=== PATIENT | male | born 1935 | race African-American/Black ===

== ENCOUNTER 2017-05-01 09:37 | Inpatient (IN) | payer OTHER ==
[~2017-05-01] VITALS: Ht 172.7 cm; Wt 72.6 kg
[~2017-05-01 09:37] MED LIST: AMLO5TAB2 PO; CLON0.1T PO; MECL-87 PO; METF-370 PO; SIMV-8 PO; THEO1TAB3 PO
[2017-05-01] MEDS ORDERED: SODIUM CHLORIDE 0.9% 1,000 ML IV ONE (10:04)
[2017-05-01 10:11] LABS: Basophils # (auto) 0 uL; Basophils % (auto) 0.3 % (0.0-2.0); Eosinophils # (auto) 0.3 uL; Monocytes # (auto) 0.8 uL; Neutrophils # (auto) 5.2 uL; Nucleated Red Blood Cells % 0.3 %; Red Blood Cells 5.66 10^6/uL (4.5-5.90); White Blood Cell 8.8 10^3/uL (4.4-10.8)
[2017-05-01 10:13] LABS: Eosinophils % (auto) 3.3 % (0.0-7.0); Hemoglobin 14.6 g/dL (13.5-17.5); Lymphocytes # (auto) 2.6 uL; Lymphocytes % (auto) 29.1 % (10.0-50.0); Mean Corpuscular Hemoglobin 25.8 pg (28.0-32.0); Mean Corpuscular Hgb Conc. 32.5 g/dL (32.0-36.0); Mean Corpuscular Volume 79.4 fL (80.0-100.0); Monocytes % (auto) 8.8 % (0.0-12.0); Neutrophils % (auto) 58.5 % (37.0-80.0); Platelet Count (auto) 287 10^3/uL (140-450); Red Cell Distribution Width 14.2 % (11.8-14.3)
[2017-05-01] MEDS ORDERED: MECLIZINE HCL 25 MG TAB PO ONE (10:15)
[2017-05-01] MEDS ORDERED: METOPROLOL TARTRATE 1MG/1ML-5ML VIAL IV ONE (10:30)
[2017-05-01] MEDS ORDERED: ASPirin 81 mg TAB PO ONE (10:30)
[2017-05-01 10:39] LABS: Alanine Aminotransferase 14 U/L (16-61); Albumin 3.8 g/dL (3.4-5.0); Alkaline Phosphatase 1268 U/L (45-117); Anion Gap 14 (5-15); Aspartate Aminotransferase 29 U/L (15-37); BUN/Creatinine Ratio 9.7; Bilirubin, Total 0.6 mg/dL (0.2-1.0); Blood Urea Nitrogen 10 mg/dL (7-18); Calcium 9.3 mg/dL (8.5-10.1); Carbon Dioxide 21 mmol/L (21-32); Chloride 102 mmol/L (98-107); GFR African American 89 mL/min; GFR Non-African American 74 mL/min; Glucose 110 mg/dL (74-106); Magnesium 2.2 mg/dL (1.6-2.6); Potassium 3.7 mmol/L (3.5-5.1); Sodium 137 mmol/L (136-145); Total Protein 9.2 g/dL (6.4-8.2)
[2017-05-01] MEDS ORDERED: MECLIZINE HCL 25 MG TAB PO PRN (11:45)
[2017-05-01] MEDS ORDERED: SOTALOL HCL 80 MG TAB PO ONE (11:45)
[2017-05-01] MEDS ORDERED: cloNIDine HCL 0.1 MG TAB PO PRN (11:45)
[2017-05-01] MEDS ORDERED: NITROGLYCERIN 0.4 MG SL TAB SL PRN (12:00)
[2017-05-01] MEDS ORDERED: TEMAZEPAM 15 MG CAP PO PRN (12:00)
[2017-05-01] MEDS: THEOPHYLLINE 80 MG/15ml ORAL Elixir PO SCH ×3 (12:00→22:00)
[2017-05-01] MEDS ORDERED: DOCUSATE SOD 100 MG CAP PO PRN (12:00)
[2017-05-01] MEDS ORDERED: ONDANSETRON HCL 4 MG/2 ML VIAL IV PRN (12:00)
[2017-05-01] MEDS ORDERED: HYDROcodone-ACET 5/325MG TAB PO PRN (12:00)
[2017-05-01] MEDS ORDERED: DEXTROSE (50%) 50ML SYRG IV PRN (12:00)
[2017-05-01] MEDS ORDERED: ACETAMINOPHEN 325 MG TAB PO PRN (12:00)
[2017-05-01] MEDS ORDERED: MORPHINE SULFATE 4 MG/ML SYR/VIAL IV PRN ×2 (12:00)
[2017-05-01 13:14] LABS: Urine Bacteria NONE SEEN /hpf (None Seen); Urine Blood TRACE /uL (Negative); Urine Specific Gravity 1.005 (1.001-1.035); Urine WBC 1 /hpf (0 - 3)
[2017-05-01] MEDS: SODIUM CHLOR 0.9% PF (SALINE LOCK) 10ML VIAL IV SCH ×2 (14:04→22:00)
[2017-05-01 14:43] LABS: INR 1.15 (0.9-1.15); Prothrombin Time 12.5 sec (9.37-12.3)
[2017-05-01] MEDS: InsuLIN REG 1unit/0.01ml Soln (100units/ml) SC SCH ×2 (17:00→22:00)
[2017-05-01] MEDS: ACCU-CHEK COMFORT CURVE STRIP VI SCH ×2 (17:16→22:03)
[2017-05-01] MEDS: SOTALOL HCL 80 MG TAB PO SCH (22:00)
[2017-05-01] MEDS: ATORVASTATIN 20 MG TAB PO SCH (22:31)
[2017-05-01] MEDS: APIXABAN 2.5 MG TAB PO SCH (22:32)
[2017-05-01 23:37] VITALS: BP 133/53
[2017-05-02 05:30] VITALS: BP 137/94
[2017-05-02] MEDS: SODIUM CHLOR 0.9% PF (SALINE LOCK) 10ML VIAL IV SCH ×3 (05:54→21:56)
[2017-05-02] MEDS: ACCU-CHEK COMFORT CURVE STRIP VI SCH ×4 (05:55→21:56)
[2017-05-02] MEDS: THEOPHYLLINE 80 MG/15ml ORAL Elixir PO SCH ×4 (05:55→21:55)
[2017-05-02] MEDS: InsuLIN REG 1unit/0.01ml Soln (100units/ml) SC SCH ×4 (05:55→21:56)
[2017-05-02 06:26] LABS: Basophils # (auto) 0 uL; Eosinophils # (auto) 0.3 uL; Hemoglobin 13.4 g/dL (13.5-17.5); Red Cell Distribution Width 14.3 % (11.8-14.3)
[2017-05-02 06:30] LABS: Basophils % (auto) 0.4 % (0.0-2.0); Eosinophils % (auto) 5.4 % (0.0-7.0); Hematocrit 40.1 % (41.0-53.0); Lymphocytes # (auto) 1.6 uL; Lymphocytes % (auto) 32.6 % (10.0-50.0); Mean Corpuscular Hemoglobin 26.4 pg (28.0-32.0); Mean Corpuscular Hgb Conc. 33.5 g/dL (32.0-36.0); Mean Corpuscular Volume 78.6 fL (80.0-100.0); Monocytes # (auto) 0.7 uL; Monocytes % (auto) 13.6 % (0.0-12.0); Neutrophils # (auto) 2.4 uL; Nucleated Red Blood Cells % 0.4 %; Platelet Count (auto) 259 10^3/uL (140-450)
[2017-05-02 06:42] LABS: Albumin 3.4 g/dL (3.4-5.0); Calcium 9.4 mg/dL (8.5-10.1); Potassium 3.5 mmol/L (3.5-5.1)
[2017-05-02 06:45] LABS: BUN/Creatinine Ratio 9.3
[2017-05-02 07:00] LABS: Bilirubin, Total 0.5 mg/dL (0.2-1.0); Total Protein 7.5 g/dL (6.4-8.2)
[2017-05-02] MEDS: MULTIPLE VITAMIN TAB PO SCH (10:15)
[2017-05-02] MEDS: SOTALOL HCL 80 MG TAB PO SCH ×2 (10:16→21:55)
[2017-05-02] MEDS: amLODIPine BESYLATE 5 MG TAB PO SCH (10:16)
[2017-05-02] MEDS: APIXABAN 2.5 MG TAB PO SCH ×2 (10:16→21:55)
[2017-05-02 13:00] VITALS: BP 135/77
[2017-05-02 17:26] VITALS: BP 126/68
[2017-05-02 21:30] VITALS: BP 120/67
[2017-05-02] MEDS: ATORVASTATIN 20 MG TAB PO SCH (21:55)
[2017-05-03 05:00] VITALS: BP 152/79
[2017-05-03] MEDS: THEOPHYLLINE 80 MG/15ml ORAL Elixir PO SCH ×3 (06:00→18:21)
[2017-05-03] MEDS: InsuLIN REG 1unit/0.01ml Soln (100units/ml) SC SCH ×3 (06:15→17:00)
[2017-05-03] MEDS: ACCU-CHEK COMFORT CURVE STRIP VI SCH ×3 (06:16→17:00)
[2017-05-03] MEDS: SODIUM CHLOR 0.9% PF (SALINE LOCK) 10ML VIAL IV SCH ×2 (06:16→14:00)
[2017-05-03] MEDS: APIXABAN 2.5 MG TAB PO SCH (10:17)
[2017-05-03] MEDS: SOTALOL HCL 80 MG TAB PO SCH (10:17)
[2017-05-03] MEDS: MULTIPLE VITAMIN TAB PO SCH (10:18)
[2017-05-03] MEDS: amLODIPine BESYLATE 5 MG TAB PO SCH (10:19)
[2017-05-03 12:26] VITALS: BP 121/71
[2017-05-03 16:58] VITALS: BP 113/73
== END 2017-05-03 19:35 | disposition home or self-care (01) | DRG 309 ==
LOC: ER 09:37 → EDBD 09:37 → OVERFLOW 09:38 → TELE-WESTW 20:29
PROVIDERS: ADMIT Internal Medicine; ATTEND Internal Medicine
DX: I48.91 Unspecified atrial fibrillation (principal); G45.9 Transient cerebral ischemic attack, unspecified; E11.21 Type 2 diabetes mellitus with diabetic nephropathy; I13.10 Hypertensive heart and chronic kidney disease without heart failure, with stage 1 through stage 4 chronic kidney disease, or unspecified chronic kidney disease; E11.22 Type 2 diabetes mellitus with diabetic chronic kidney disease; I48.92 Unspecified atrial flutter; N18.2 Chronic kidney disease, stage 2 (mild); E78.5 Hyperlipidemia, unspecified; H54.62 Unqualified visual loss, left eye, normal vision right eye; I25.10 Atherosclerotic heart disease of native coronary artery without angina pectoris; Z82.49 Family history of ischemic heart disease and other diseases of the circulatory system; Z83.3 Family history of diabetes mellitus; Z79.899 Other long term (current) drug therapy
CPT/HCPCS: 36415; 70450; 71045; 76536; 80053; 81001; 82962; 83036; 83540; 83735; 83880; 84443; 84484; 85025; 85610; 87086; 93005; 96361; 96374

== ENCOUNTER 2018-04-03 05:01 | Emergency (ER) | payer OTHER ==
[~2018-04-03] VITALS: Ht 172.7 cm; Wt 79.4 kg
[~2018-04-03 05:01] MED LIST changes: +AMLO5TAB13 PO; -AMLO5TAB2 PO; -THEO1TAB3 PO; +[UNRECOGNIZED DRUG - CODE] PO
[2018-04-03 05:39] VITALS: BP 127/80
[2018-04-03] MEDS ORDERED: HYDROcodone-ACET 5/325MG TAB PO ONE (07:45)
== END 2018-04-03 08:32 | disposition home or self-care (01) ==
LOC: ER 05:05
DX: M54.5 Low back pain (principal); M79.10 Myalgia, unspecified site; M25.562 Pain in left knee; M25.561 Pain in right knee; I25.10 Atherosclerotic heart disease of native coronary artery without angina pectoris; E11.9 Type 2 diabetes mellitus without complications; E78.5 Hyperlipidemia, unspecified; I10 Essential (primary) hypertension; Z85.830 Personal history of malignant neoplasm of bone; Z79.84 Long term (current) use of oral hypoglycemic drugs; Z79.899 Other long term (current) drug therapy